=== PATIENT | male | born 1960 | race Caucasian/White ===

== ENCOUNTER 2023-12-21 21:18 | Emergency (ER) | payer BC, SELFPAY ==
[2023-12-21] VITALS (12 sets, daily range): BP systolic 100–131; BP diastolic 54–71; PULSE 40–45; RESP 16; TEMP 35.8; O2SAT 96–98
--- NOTE | 2023-12-21 21:31 | ED.GENADULT ---
HPI - General Adult General Date Seen: 12/21/23 Chief complaint: Chest Pain Stated complaint: Reaction to medication--lightheaded, lethargic Time Seen by Provider: 12/21/23 21:31 History of Present Illness HPI narrative: 63-year-old male with a past medical history of alcoholic cirrhosis of his liver with ascites, history of bleeding esophageal varices, acute pancreatitis, portal hypertension, thrombocytopenia, coagulopathy, history of CHF with diastolic dysfunction He was sent to the ER today by the [facility] triage nurse. According to those notes he passed out today at about 5:30 p.m.. He took tizanidine for the 1st time for muscle spasms and within about 15 minutes he could hardly stay awake. He was slurring his speech and sweating. He became quite dizzy and lightheaded with standing up but feels better when he is lying down. He also had some substernal chest discomfort that did radiate to his right shoulder. He is not short of breath. No coughing. No fever. He was nauseous but did not vomit. No abdominal pain. He does have some pre-existing back pain that bothers him on the midline of his lumbar spine and into his right hip. This is been present for the past couple of months. He has already had a workup for and apparently has a L3 disc. He was put on tizanidine by his spine surgeon, Dr. Maradiaga, and took his 1st dose tonight. No new pain in his back. No numbness or weakness down his legs. He is noted to be bradycardic. With sinus bradycardia in the 40s. He does not know if he has ever had a slow resting heart rate before. He is not feeling any palpitations. Discussed with [facility] at 9:54 p.m. they advised that tizanidine can present similarly to clonidine. With liver disease can cause these symptoms including drowsiness, dizziness, slurred speech, bradycardia, orthostatic hypotension. Typically half life is fairly short lasting about 2-3 hours and the anticipate he will improve quickly. Descending can be associated with prolonged QT. QT tonight is 540. They would advise supplementing magnesium to keep it above 2.0 and supplementing potassium to keep it above 4. Monitor for worsening bradycardia and if it occurs treat with atropine. However, given time since he took the tizanidine, will not likely have worsening bradycardia. In review of medical record, he had a clinic visit on 12/13. Pulse rate was 53. Blood pressure 126/76. Pulse rate was 48 in clinic edema on 08/13/2023. Related Data Home Medications ?Medication ?Instructions ?Recorded ?Confirmed tizanidine 4 mg tablet 4 mg PO Q6H PRN muscle spasm 12/21/23 12/21/23 Allergies Allergy/AdvReac Type Severity Reaction Status Date / Time tizanidine AdvReac Severe Dizziness Verified 12/21/23 23:50 PFSH PFSH Social History How often do you have a drink containing alcohol: never AUDIT-C Alcohol total score: 0 Non-prescribed substance use: denies use Exam Narrative: Exam Narrative: Constitutional: Appears well-developed and well-nourished. Awake and able to answer questions appropriately. says he was much more drowsy and slurring his speech at home but seems to be doing better now. Conversant. He looks tired and worn out. Pulse rate in the 40s. Blood pressure 127/67 while lying down. He feels symptomatic with standing up to transfer from his wheelchair to his bed. HENT: Head: Atraumatic. Nose: Nose normal. Mouth/Throat: Oral mucosa is clear and moist. no trismus. Pharynx normal. Tonsils symmetric. No tonsillar enlargement, erythema, or exudate. Eyes: Conjunctivae normal. EOM normal. Pupils equal, round, and reactive to light. No scleral icterus. Neck: Normal range of motion. Neck supple. No tracheal deviation present. Cardiovascular: Bradycardic, regular rhythm. No gallop. No friction rub. No murmur heard. Symmetric radial artery pulses Pulmonary/Chest: Effort normal. No stridor. No respiratory distress. No wheezes. No rales. No rhonchi . No tenderness. Abdominal: Soft. Bowel sounds normal. No distension. No mass. No tenderness. No rebound. No guarding. No pulsatile mass. Musculoskeletal: RUE: Normal range of motion. No tenderness. No deformity LUE: Normal range of motion. No tenderness. No deformity RLE: Normal range of motion. No edema. No tenderness. No deformity LLE: Normal range of motion. No edema. No tenderness. No deformity Mild lower lumbar spine tenderness. No step-off. Pelvis is stable. Neurological: Alert and oriented to person, place, and time. Normal strength. CN II-VII intact. No sensory deficit. GCS eye subscore is 4. GCS verbal subscore is 5. GCS motor subscore is 6. Normal coordination Skin: Skin is warm and dry. No rash noted. No pallor. Normal capillary refill. Psychiatric: Normal mood. Normal affect. Const: Vital Signs, click to edit/add: Vital Signs - 24 hr 12/21/23 21:28 12/21/23 21:45 12/21/23 21:50 Temperature 96.5 F L Pulse Rate 43 L 42 L Pulse Rate [Pulse Oximeter] 45 L Respiratory Rate 16 Blood Pressure 109/62 Blood Pressure [Ri ght Upper Arm] 102/65 Pulse Oximetry 97 97 97 Oxygen Delivery Me thod Room Air 12/21/23 22:00 12/21/23 22:01 12/21/23 22:15 Temperature Pulse Rate 42 L 42 L 42 L Pulse Rate [Pulse Oximeter] Respiratory Rate Blood Pressure 121/66 Blood Pressure [Ri ght Upper Arm] Pulse Oximetry 96 97 97 Oxygen Delivery Me thod 12/21/23 22:30 12/21/23 22:32 12/21/23 22:33 Temperature Pulse Rate 43 L 40 L 45 L Pulse Rate [Pulse Oximeter] Respiratory Rate Blood Pressure 131/71 Blood Pressure [Ri ght Upper Arm] Pulse Oximetry 97 97 97 Oxygen Delivery Me thod 12/21/23 22:45 12/21/23 23:03 12/21/23 23:04 Temperature Pulse Rate 43 L 43 L 45 L Pulse Rate [Pulse Oximeter] Respiratory Rate Blood Pressure 100/54 L Blood Pressure [Ri ght Upper Arm] Pulse Oximetry 96 97 98 Oxygen Delivery Me thod Course Course ED Course: recheck- Mg normal, but below 2.0 threshold recommended by [facility]. Will supplement with 1 g Mag sulfate. Potassium normal but also lower than recommended threshold. Will supplement with 20 mEq p.o.. Recheck-patient feeling much better. Has completed a L of saline. Was standing up the bedside to make urine and did not feel orthostatic or dizzy standing up. notes mental status is improving. Heart rate remains in the 40s. In reviewing his old records I see that his baseline heart rate tends to be in the 40s and 50s with his recent clinic visits. Vital Signs Vital signs: Initial Vital Signs Temperature 96.5 F L 12/21/23 21:28 Temperature Source Temporal Artery Scan 12/21/23 21:28 Pulse Rate 45 L 12/21/23 21:28 Respiratory Rate 16 12/21/23 21:28 Blood Pressure 102/65 12/21/23 21:28 Blood Pressure Mean 77 12/21/23 21:28 Blood Pressure Position Sitting 12/21/23 21:28 Pulse Oximetry 97 12/21/23 21:28 Oxygen Delivery Method Room Air 12/21/23 21:28 Vital Signs Temperature 96.5 F L 12/21/23 21:28 Pulse Rate 45 L 12/21/23 21:28 Respiratory Rate 16 12/21/23 21:28 Blood Pressure 102/65 12/21/23 21:28 Pulse Oximetry 97 12/21/23 21:28 Oxygen Delivery Method Room Air 12/21/23 21:28 Temperature 96.5 F L 12/21/23 21:28 Pulse Rate 45 L 12/21/23 23:04 Respiratory Rate 16 12/21/23 21:28 Blood Pressure 100/54 L 12/21/23 23:03 Pulse Oximetry 98 12/21/23 23:04 Oxygen Delivery Method Room Air 12/21/23 21:28 Medications Administered Medications: Discontinued Medications Generic Name Dose Route Start Last Admin Trade Name Freq PRN Reason Stop Dose Admin Sodium Chloride 1,000 mls @ 1,000 mls/hr 12/21/23 22:35 12/21/23 22:00 0.9 % Sodium Chloride 1000 Ml IV 12/21/23 23:34 1,000 mls/hr .Q1H JAY Administration Magnesium Sulfate/Dextrose 1 gm in 100 mls @ 100 mls/hr 12/21/23 22:37 12/21/23 22:56 Magnesium Sulf 1 G/100 Ml-D5w IVPB 12/21/23 23:36 Not Given ONCE ONE Magnesium Sulfate 1 gm in 25 mls @ 25 mls/hr 12/21/23 22:49 12/21/23 22:56 Magnesium Iv IVPB 12/21/23 23:48 25 mls/hr ONCE ONE Administration Potassium Chloride 20 meq 12/21/23 22:37 12/21/23 22:53 Potassium Chloride 10 Meq Capsule Er PO 12/21/23 22:38 20 meq ONCE ONE Administration Medical Decision Making MDM Narrative Medical decision making narrative: Pleasant 63-year-old gentleman with a past medical history of cirrhosis, 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 He has been doing pretty well lately with his health and was pretty active throughout the day today. He was even out doing yd work and weed whipping. He was given a prescription for tizanidine by his back specialist and took his 1st dose of it this evening at about 5. Within about 15 or 20 minutes of taking the med he developed drowsiness, dizziness, presyncope, slurred speech. After calling his clinic, his brought him here to the ER. When he presented he was feeling symptomatically dizzy with standing up, and had borderline hypotension of 90/55. He also had bradycardia with heart rate around 40-45 (sinus Eder). Differential for symptoms is broad. First were concerned about possible tizanidine overdose or excess dosage. There is no report here of any intentional overdose or coingestion with other sedating substances. In reviewing the pharmacology it does look like tizanidine would be contraindicated with liver disease. Reviewed with the [facility], see above. EKG shows sinus bradycardia but no ischemia. Screening troponin is negative. No evidence for high-degree AV block. He is not hypoxic. No shortness of breath. No symptoms to suggest PE. He is not having any abdominal pain to suggest rupturing abdominal aortic aneurysms or other vascular catastrophe. Labs show pancytopenia with a white count of 4, hemoglobin 11, platelet count of 61 these are similar to his most recent CBC results from 12/21/2023 in the [facility] chart. On that day white count was 4.4, hemoglobin 12.1, platelet count 64. With IV fluids and observation here in the ER the patient's symptoms resolved. He remained bradycardic with heart rate in the 40s. This appears to be his baseline. Lab Data Labs: Lab Results 12/21/23 12/21/23 12/21/23 Range/Units 21:44 21:57 21:58 WBC 4.00 L (4.50-11.00) K/uL RBC 3.90 L (4.30-5.90) m/uL Hgb 11.1 L (13.5-17.5) gm/dL Hct 34.7 L (37.0-53.0) % MCV 89 (80-100) fL MCH 29 (26-34) pg MCHC 32 (32-36) gm/dL RDW Coeff of Annette 15.1 (11.5-15.5) % Plt Count 61 L (140-440) K/uL Neut % (Auto) 76.8 H (42.0-72.0) % Lymph % (Auto) 12.3 L (20-44) % [place] % (Auto) 7.8 (0.0-11.0) % Eos % (Auto) 2.0 (0.0-7.0) % Baso % (Auto) 0.8 (0.0-3.0) % Neut # (Auto) 3.10 (1.7-7.0) K/uL Lymph # (Auto) 0.50 L (0.90-2.90) K/uL [place] # (Auto) 0.30 (0.00-0.90) K/UL Eos # (Auto) 0.10 (0.00-0.50) K/uL Baso # (Auto) 0.00 (0.00-0.30) K/uL Abs Immat Gran (auto) 0.00 (0.00-0.30) K/uL Imm/Tot Granulo (auto) 0.3 % Diff Slide Review Acceptable Review (Acceptable) Sodium 133 L (135-149) mmol/L Potassium 3.8 (3.6-5.1) mmol/L Chloride 105 (96-114) mmol/L Carbon Dioxide 24 (20-32) mmol/L Anion Gap 4 L (7-15) mEq/L BUN 8 (7-30) mg/dL Creatinine 0.8 (0.5-1.5) mg/dL Estimated GFR 101 ml/min Glucose 105 (60-115) mg/dL Calcium 8.4 (8.4-10.6) mg/dL Magnesium 1.9 (1.5-2.6) mg/dL Total Bilirubin 1.7 H (0.1-1.5) mg/dL AST 35 (12-35) U/L ALT 21 (4-50) U/L Alkaline Phosphatase 106 (40-150) U/L Total Protein 5.8 L (6.0-8.3) g/dL Albumin 2.9 L (3.3-5.0) g/dL POC Troponin I 0.01 (0.01-0.04) ng/ml ECG Data Attestation: I personally reviewed and interpreted this ECG as follows: Interpretation: Marked sinus bradycardia with sinus arrhythmia Rate: 44 CO: 172 QRS axis: Normal axis ST segment/T wave: No pathologic ST segment elevation or depression QTc: 461 Discharge Plan Discharge Clinical Impression: Dizziness Patient Disposition: Home, Self-Care Condition: Stable Instructions: Dizziness (ED) Additional Instructions: As we discussed, we suspect that your dizziness, drowsiness, slurred speech, or symptoms of the tizanidine. Please avoid taking this medication in the future. Your other laboratory workup looks reassuring. We do notice that your heart rate is slow (your resting heart rate tonight is in the 40s). If you have any more dizzy spells, slurred speech, fainting spells, chest pain, or any problems, please return to the ER immediately. Please recheck with your regular doctor tomorrow to discuss your back pain and consider what options we have for symptom management. Prescriptions: No Action tizanidine 4 mg tablet 4 mg PO Q6H PRN (Reason: muscle spasm) Follow Up/Referrals: Provider,Not a Local [Primary Care Provider] - Stand Alone Forms: [employer] Info Instructions
[2023-12-21] MEDS: 0.9 % SODIUM CHLORIDE 1000 ml 1,000 ML IV (22:00)
[2023-12-21 22:01] LABS: Troponin, Point-of-Care* 0.01 ng/ml (0.01-0.04)
[2023-12-21 22:07] LABS: Basophils Percent Auto 0.8 % (0.0-3.0); Hematocrit 34.7 % (37.0-53.0); Hemoglobin* 11.1 gm/dL (13.5-17.5); Immature Granulocytes Pct Auto 0.3 %; Lymphocytes Percent Auto 12.3 % (20-44); Mean Corpuscular HGB Conc 32 gm/dL (32-36); Mean Corpuscular Hemoglobin 29 pg (26-34); Mean Corpuscular Volume 89 fL (80-100); Monocytes Percent Auto 7.8 % (0.0-11.0); Neutrophils Percent Auto 76.8 % (42.0-72.0); Platelet Count* 61 K/uL (140-440); RDW Coefficient of Variation % 15.1 % (11.5-15.5)
[2023-12-21 22:19] LABS: Chloride* 105 mmol/L (96-114)
[2023-12-21 22:20] LABS: Albumin* 2.9 g/dL (3.3-5.0); Potassium* 3.8 mmol/L (3.6-5.1); Sodium* 133 mmol/L (135-149)
[2023-12-21 22:22] LABS: Anion Gap 4 mEq/L (7-15); Carbon Dioxide* 24 mmol/L (20-32); Creatinine* 0.8 mg/dL (0.5-1.5); Estimated Glomerular Filt Rate 101 ml/min
[2023-12-21 22:23] LABS: Alanine Aminotransferase* 21 U/L (4-50); Alkaline Phosphatase* 106 U/L (40-150); Aspartate Amino Transferase* 35 U/L (12-35); Bilirubin Total* 1.7 mg/dL (0.1-1.5); Blood Urea Nitrogen* 8 mg/dL (7-30); Calcium* 8.4 mg/dL (8.4-10.6); Glucose* 105 mg/dL (60-115); Total Protein* 5.8 g/dL (6.0-8.3)
[2023-12-21 22:24] LABS: Magnesium* 1.9 mg/dL (1.5-2.6)
[2023-12-21 22:31] LABS: Slide Review Reflex Yes
[2023-12-21 22:42] LABS: Slide Review Acceptable Review (Acceptable)
[2023-12-21] MEDS: POTASSIUM CHLORIDE 10 MEQ CAPSULE ER 20 MEQ PO (22:53)
== END 2023-12-22 00:11 | disposition home or self-care (01) ==
PROVIDERS: Emergency Provider Emergency Medicine
DX: R42 Dizziness and giddiness (principal)
CPT/HCPCS: 36415; 80053; 83735; 84484; 85025; 93005; 96365; 99284; A9270; J3475; J7030

== ENCOUNTER 2024-01-05 09:14 | Outpatient (CLI) | payer BC, SELFPAY | END 2024-01-05 09:15 | disposition home or self-care (01) | LOC: INJ CL 09:15 | PROVIDERS: Visit Provider Family Medicine | DX: M54.16 Radiculopathy, lumbar region (principal); M51.369 Other intervertebral disc degeneration, lumbar region without mention of lumbar back pain or lower extremity pain | CPT/HCPCS: 62323; J0702; Q9966 ==